=== PATIENT | male | born 1990 | race Caucasian/White ===

== ENCOUNTER 2019-05-01 18:39 | Emergency (ER) | payer OTHER ==
[2019-05-01] MEDS ORDERED: Gentamicin Ophth Soln 0.3% 5 ml Bottle ONE (19:05)
[2019-05-01] MEDS ORDERED: Erythromycin Base 0.5% Oint 1 GM TUBE ONE (19:05)
== END 2019-05-01 19:10 | disposition home or self-care (01) ==
LOC: SCSER 18:39
DX: H10.022 Other mucopurulent conjunctivitis, left eye (principal); F17.210 Nicotine dependence, cigarettes, uncomplicated
CPT/HCPCS: 99283